=== PATIENT | male | born 1950 | race Caucasian/White ===

== ENCOUNTER 2021-10-05 06:19 | Emergency (ER) | payer MEDICARE ==
[2021-10-05 07:54] LABS: HEMOGLOBIN 13.8 gm/dl (14.0-17.5); RED BLOOD COUNT 3.72 M/UL (4.20-5.50); WHITE BLOOD COUNT 12.1 K/UL (4.5-11.0)
[2021-10-05 08:22] LABS: BUN/CREATININE RATIO 15 (0-10)
== END 2021-10-05 17:30 | disposition other institution (70) ==
LOC: ER1 06:19
PROVIDERS: Nurse Practitioner
DX: N13.2 Hydronephrosis with renal and ureteral calculous obstruction (principal); N17.9 Acute kidney failure, unspecified; Z20.822 Contact with and (suspected) exposure to COVID-19; F17.210 Nicotine dependence, cigarettes, uncomplicated
CPT/HCPCS: 0240U; 51702; 70450; 71045; 80053; 81001; 82150; 82550; 82553; 83605; 83690; 83880; 84484; 85025; 85652; 86140; 87040; 93005; 96374; 99285; J0696; J7030

== ENCOUNTER → 2021-11-20 | Outpatient (CLI) | payer MEDICARE | LOC: EXRD 09:30 | DX: M54.50 Low back pain, unspecified (principal); M47.816 Spondylosis without myelopathy or radiculopathy, lumbar region | CPT/HCPCS: 72100 ==